=== PATIENT | female | born 1965 | race Caucasian/White ===

== ENCOUNTER 2021-01-28 07:00 | Day surgery (SDC) | payer BC ==
[2021-01-28] MEDS ORDERED: Neostigmine Methylsulfate 1 MG/ML 5 ML Syringe ONE (07:22)
[2021-01-28] MEDS ORDERED: Rocuronium 50 MG/5 ML Vial ONE (07:22)
[2021-01-28] MEDS ORDERED: fentaNYL 250 MCG/5 ML SDV ONE (07:22)
[2021-01-28] MEDS ORDERED: Ondansetron 4 MG/2 ML SDV ONE (07:22)
[2021-01-28] MEDS ORDERED: Propofol 200 MG/20 ML SDV ONE (07:22)
[2021-01-28] MEDS ORDERED: Dexamethasone 4 MG/ML SDV ONE (07:22)
[2021-01-28] MEDS ORDERED: Glycopyrrolate 0.2 MG/ML 5 ML MDV ONE (07:22)
[2021-01-28] MEDS ORDERED: metroNIDAZOLE/Normal Saline 500 MG in Premix Bag 1 BAG IV ONE (07:30)
[2021-01-28] MEDS ORDERED: ceFAZolin 2 GM in Premix Bag 1 BAG IV ONE (07:30)
[2021-01-28] MEDS ORDERED: Sodium Chloride 0.9% 1,000 ML IV SCH (07:30)
[2021-01-28] MEDS ORDERED: Docusate Sodium 100 MG Cap PO PRN ×2 (09:23→09:24)
[2021-01-28] MEDS ORDERED: Acetaminophen/HYDROcodone 325-5 MG Tab PO PRN ×2 (09:23→09:24)
[2021-01-28] MEDS ORDERED: hydrOXYzine HCL 100 MG/2 ML SDV IM PRN ×2 (09:23→09:24)
[2021-01-28] MEDS ORDERED: Benzocaine/Cetylpyridinium/Menthol Lozenge MUCMEM PRN ×2 (09:23→09:24)
[2021-01-28] MEDS ORDERED: Zolpidem 5 MG Tab PO PRN ×2 (09:23→09:24)
[2021-01-28] MEDS ORDERED: fentaNYL 100 MCG/2 ML SDV ONE ×2 (09:30→10:16)
[2021-01-28] MEDS: Bupivacaine 0.5% 50 ML MDV ONE ×2 (09:38→10:15)
[2021-01-28] MEDS: Lidocaine 1% with EPINEPHrine 1:100,000 50 ML MDV ONE ×2 (09:39→10:15)
[2021-01-28] MEDS ORDERED: Labetalol 20 MG/4 ML Syringe ONE (09:53)
--- NOTE | 2021-01-28 15:26 | OR ---
DATE OF PROCEDURE: 01/28/2021 SURGEON: Ortega Kaba MD PROCEDURE: Laparoscopic cholecystectomy. PREOPERATIVE DIAGNOSES: Cholelithiasis, cholecystitis. POSTOPERATIVE DIAGNOSES: Cholelithiasis, cholecystitis. COMPLICATIONS: None. OUTSIDE PLANT TECHNICIAN: None. ANESTHESIA: General. RISKS: Risks, benefits, alternatives, and limitations including but not limited to infection, bleeding, cystic duct leaks, common bile duct injury, open surgery, hematoma, seroma, biloma, and other risks not listed here were explained to the patient who wished to proceed. PROCEDURE IN DETAIL: The patient was placed in supine position. A supraumbilical curvilinear incision was made. A Veress needle was used to enter the abdomen without abnormality. A drop test was performed without abnormalities. This was followed by an Optiview trocar. An additional 10 and two 5 mm ports were entered under direct visualization. The gallbladder was retracted cephalad. The infundibulum was retracted inferolaterally. Using blunt dissection, a "clear view" of the gallbladder was obtained with a single pulsatile structure entering the gallbladder and a single non-pulsatile structure entering the gallbladder. These were subsequently clipped x3 and transected. The remaining one-third of the gallbladder was removed off the gallbladder bed without difficulty. This was delivered through a superior port with a bag and in moderate mild dilation time. The patient had a petechiae bleeding that was persistent from the liver itself. Cautery was used multiple times to address this. The pressure in the abdomen was then dropped to 7. No additional bleeding was noted. The abdomen was re-insufflated. Irrigation was performed. The pressure was dropped a second time. No bleeding was noted. The entry point was inspected for enterotomy or injury, none was noted. The air was removed. The wounds were irrigated, closed with 3-0 Vicryl and 4-0 Vicryl in interrupted running fashion. Dermabond was applied. The patient tolerated the procedure well. Ortega Kaba MD /[id number]
[2021-01-28] MEDS: Acetaminophen 325 MG Tab PO PRN ×2 (16:06→21:24)
[2021-01-28] MEDS: Ibuprofen 600 MG Tab PO PRN (18:47)
[2021-01-29] MEDS: Ibuprofen 600 MG Tab PO PRN (08:00)
--- NOTE | 2021-01-31 09:24 | PN ---
DATE OF SERVICE: 01/29/2021 SUBJECTIVE: The patient is doing very well today. Pain is well controlled. No nausea, vomiting, shortness of breath, or chest pain. The patient was just slow to respond with respect to anesthesia yesterday and was kept overnight for observational purposes. OBJECTIVE: VITAL SIGNS: Stable. CARDIOVASCULAR: Regular rhythm and rate. RESPIRATORY: Lungs clear to auscultation bilaterally. ABDOMEN: Bowel sounds positive. Incision healing well. ASSESSMENT AND PLAN: Status post laparoscopic cholecystectomy. The patient was very lethargic and poorly aroused yesterday. None of those symptoms today. She is alert, oriented. She has a low-grade fever, most likely atelectasis. Labs were normal per nursing report. The patient will be discharged today. Ortega Kaba MD /[id number]
--- NOTE | 2021-01-31 09:38 | OR ---
DATE OF PROCEDURE: 01/28/2021 SURGEON: Ortega Kaba MD PROCEDURES: 1. Transversus abdominis plane block bilaterally. 2. Rectus sheaths blocks bilaterally. COMPLICATIONS: None. INSTRUMENT PERSON: None. RISKS: Risks, benefits, alternatives, and limitations including, but not limited to infection, bleeding, and injury to abdominal structures were explained the patient, who wished to proceed. PROCEDURE IN DETAIL: The patient was placed in supine position and the right transversus plane was addressed first. This was injected with approximately 20% of the solution under direct visualization. This was then repeated on the left side. Bilateral rectus sheath blocks were then performed under ultrasound guidance using 20% the solution respectively. The patient tolerated the procedure well and at no point did the needle blindly advance or move past the perineum. Ortega Kaba MD /[id number]
--- NOTE | 2021-01-31 10:35 | DISCH ---
DISCHARGE DIAGNOSIS: Status post laparoscopic cholecystectomy. SUMMARY OF HOSPITAL COURSE: This is a pleasant female who underwent uneventful laparoscopic cholecystectomy. The patient did very well. Unfortunately, she developed some somnolence and inability to arouse postoperatively. This morning, the patient is doing great. This has all gone. No nausea, vomiting, shortness of breath, or chest pain. Tolerating diet, passing gas. Labs were normal. FOLLOWUP: With Surgery in 7 to 14 days. ACTIVITY: No lifting greater than 30 pounds x30 days. DISCHARGE MEDICATIONS: See MAR but include Carriere for pain. /[id number]
== END 2021-01-29 09:45 | disposition home or self-care (01) ==
LOC: JP.SDS 07:00 → JP.MS 09:23 → JP.SDS 01-29 09:45
PROVIDERS: ATTEND Surgery
DX: K80.10 Calculus of gallbladder with chronic cholecystitis without obstruction (principal); E78.5 Hyperlipidemia, unspecified; E66.9 Obesity, unspecified; Z68.31 Body mass index [BMI] 31.0-31.9, adult
CPT/HCPCS: 36415; 47562; 80048; 80053; 85025; 85027; 88304; A9270; J0171; J0690; J1100; J2405; J2704; J2710; J2795; J3010; J3490; J7030